=== PATIENT | female | born 1935 | race Caucasian/White ===

== ENCOUNTER → 2017-04-07 13:27 | Outpatient (CLI) | payer MEDICARE, BC ==
[2015-12-01 09:17] VITALS: BMI 36.3
[~2017-04-07 13:27] MED LIST: BAYER CHEWABLE81 MG PO; HYDROCODONE-APA1 TAB PO; LIPITOR40 MG PO; LISINOPRIL10 MG PO; TOPROL XL100 MG PO
== END | disposition home or self-care (01) ==
LOC: D.RAD 08:15
DX: Z98.890 Other specified postprocedural states (principal)

== ENCOUNTER → 2018-06-01 11:15 | Outpatient (CLI) | payer MEDICARE, BC ==
[2015-12-01 09:17] VITALS: BMI 36.3
== END | disposition home or self-care (01) ==
LOC: D.RAD 11:15
DX: C34.90 Malignant neoplasm of unspecified part of unspecified bronchus or lung (principal)

== ENCOUNTER → 2019-05-31 10:00 | Outpatient (CLI) | payer MEDICARE, BC ==
[2015-12-01 09:17] VITALS: BMI 36.3
== END | disposition home or self-care (01) ==
LOC: D.RAD 10:00
PROVIDERS: ATTEND Internal Medicine Cardiovascular Disease
DX: C34.12 Malignant neoplasm of upper lobe, left bronchus or lung (principal)